=== PATIENT | male | born 1955 | race Two or more races ===

== ENCOUNTER 2017-12-29 20:15 | Inpatient (IN) | payer OTHER ==
[~2017-12-29] VITALS: Ht 177.8 cm; Wt 117.9 kg
[2017-12-29 20:24] VITALS: Ht 177.8 cm; Wt 117.9 kg
[2017-12-29 20:55] LABS: BASOPHIL % 0.5 % (0-2); PLATELET COUNT 232 x10^3mcL (130-400)
[2017-12-29 21:12] LABS: CALCIUM 8.8 mg/dL (8.5-10.1); CARBON DIOXIDE 28.1 mmol/L (21-32); CHLORIDE SERUM 102 mmol/L (98-107); CREATININE SERUM 1.1 mg/dL (0.7-1.3); GFR1 > 60 mL/min; GLUCOSE SERUM 134 mg/dL (74-106); POTASSIUM SERUM 3.8 mmol/L (3.5-5.1); SODIUM SERUM 133 mmol/L (136-145)
[2017-12-29 21:17] LABS: ALKALINE PHOSPHATASE 59 U/L (46-116); ALT/SGPT 55 U/L (16-63); AST/SGOT 31 U/L (15-37); BILIRUBIN TOTAL 0.32 mg/dL (0.20-1.00); LIPASE 317 IU/L (73-393); TOTAL PROTEIN, SERUM 7.8 g/dL (6.4-8.2)
[2017-12-29 21:31] LABS: ALBUMIN 3.1 g/dL (3.4-5.0)
[2017-12-29] MEDS ORDERED: LOSARTAN POTASS50 M1 PO (22:33)
[2017-12-29 23:14] VITALS: BP 118/81
[2017-12-29 23:58] LABS: microscopic required? NO
[2017-12-30 00:09] LABS: UA SPECIFIC GRAVITY <=1.005 (1.005-1.035); urine erythrocyte NEGATIVE (NEGATIVE)
[2017-12-30 00:16] LABS: AMPHETAMINE QUAL UR NONE DETECTED (See below)
[2017-12-30 02:19] LABS: CHOLESTEROL/HDL RATIO 5.4; MAGNESIUM 2.1 mg/dL (1.8-2.4); PHOSPHOROUS 3.1 mg/dL (2.5-4.9)
[2017-12-30 02:25] LABS: T3 TOTAL 0.88 ng/mL
[2017-12-30 02:28] LABS: FREE T4 0.9 ng/dL (0.76-1.46); T4(THYROXINE) 5.3 ug/dL (4.7-13.3)
[2017-12-30 05:21] VITALS: BP 116/64
[2017-12-30 07:13] LABS: CARBON DIOXIDE 31.1 mmol/L (21-32); CHLORIDE SERUM 106 mmol/L (98-107); CREATININE SERUM 0.9 mg/dL (0.7-1.3); GFR1 > 60 mL/min; GLUCOSE SERUM 104 mg/dL (74-106); MAGNESIUM 2.1 mg/dL (1.8-2.4); PHOSPHOROUS 3.4 mg/dL (2.5-4.9); POTASSIUM SERUM 4.5 mmol/L (3.5-5.1); SODIUM SERUM 139 mmol/L (136-145)
[2017-12-30 07:26] LABS: BASOPHIL % 0.6 % (0-2); PLATELET COUNT 224 x10^3mcL (130-400)
[2017-12-30 07:27] LABS: RED CELL DISTRIBUTION WIDTH 16.1 % (11.5-14.5)
[2017-12-30 09:35] VITALS: BP 136/86
[2017-12-30 13:02] VITALS: BP 135/86
[2017-12-30 17:29] VITALS: BP 133/85
[2017-12-30 20:32] VITALS: BP 139/80
[2017-12-31 05:29] VITALS: BP 132/91
[2017-12-31 09:39] VITALS: BP 133/79
[2017-12-31 13:39] VITALS: BP 137/89
[2017-12-31] MEDS ORDERED: LIPI20 PO (17:08)
[2017-12-31] MEDS ORDERED: METOPROLOL SUCC25 M2 PO (17:09)
[2017-12-31] MEDS ORDERED: ECO81 PO (17:10)
[2017-12-31 17:15] VITALS: BP 131/78; BP 133/77
[2017-12-31 17:39] VITALS: BP 133/77
[2017-12-31] MEDS ORDERED: NIT0.4 SL (18:02)
== END 2017-12-31 18:41 | disposition home or self-care (01) | DRG 392 ==
LOC: ED 20:15 → DU 22:24
PROVIDERS: Emergency Medicine; Internal Medicine
DX: K21.9 Gastro-esophageal reflux disease without esophagitis (principal); E87.1 Hypo-osmolality and hyponatremia; E44.0 Moderate protein-calorie malnutrition; I16.0 Hypertensive urgency; I10 Essential (primary) hypertension; E78.5 Hyperlipidemia, unspecified; E66.9 Obesity, unspecified; Z68.37 Body mass index [BMI] 37.0-37.9, adult; Z87.891 Personal history of nicotine dependence
CPT/HCPCS: 83880; 84439; A9500; J2270; J2785; J7030; Q0092; Q0162